=== PATIENT | female | born 1970 | race Asian ===

== ENCOUNTER 2023-06-04 08:25 | Day surgery (SDC) | payer BC ==
[2023-06-03 10:00] VITALS: BMI 29.2
[2023-06-04] MEDS ORDERED: PROPOFOL 20 ML ONE (09:31)
[2023-06-04] MEDS ORDERED: Lidocaine 1% PF 5 ML VIAL ONE (09:32)
== END 2023-06-04 10:34 | disposition home or self-care (01) ==
LOC: CSHSDC 08:25
PROVIDERS: ATTEND Internal Medicine Gastroenterology
PROC: 0DJD8ZZ Inspection of Lower Intestinal Tract, Via Natural or Artificial Opening Endoscopic (ICD-10-PCS; principal; 2023-06-04)
DX: Z12.11 Encounter for screening for malignant neoplasm of colon (principal); K62.89 Other specified diseases of anus and rectum; K64.9 Unspecified hemorrhoids; E11.9 Type 2 diabetes mellitus without complications; E78.5 Hyperlipidemia, unspecified; Z79.899 Other long term (current) drug therapy
CPT/HCPCS: J2704